=== PATIENT | female | born 1975 | race Asian ===

== ENCOUNTER 2017-01-30 08:24 | Emergency (ER) | payer OTHER ==
[~2017-01-30] VITALS: Ht 177.8 cm; Wt 121.6 kg
[2017-01-30 10:29] VITALS: BP 174/109
== END 2017-01-30 10:29 | disposition home or self-care (01) ==
LOC: ED 08:24
DX: S50.02XA Contusion of left elbow, initial encounter (principal); I10 Essential (primary) hypertension; Z79.84 Long term (current) use of oral hypoglycemic drugs; W01.0XXA Fall on same level from slipping, tripping and stumbling without subsequent striking against object, initial encounter; Y93.89 Activity, other specified; Y99.8 Other external cause status; Y92.89 Other specified places as the place of occurrence of the external cause
CPT/HCPCS: Q0092

== ENCOUNTER 2020-07-21 01:14 | Emergency (ER) | payer OTHER, SELFPAY ==
[~2020-07-21] VITALS: Ht 177.8 cm; Wt 102.1 kg
[2020-07-21 01:23] VITALS: Ht 177.8 cm; Wt 102.1 kg
[2020-07-21 02:14] LABS: microscopic required? YES; urine erythrocyte 3+ (NEGATIVE)
[2020-07-21 02:27] LABS: BASOPHIL % 0.5 % (0.2-1.3); PLATELET COUNT 262 x10^3mcL (179-408)
[2020-07-21 02:31] LABS: ALBUMIN 3.4 g/dL (3.4-5.0); BILIRUBIN TOTAL 0.4 mg/dL (0.20-1.00); CALCIUM 9.5 mg/dL (8.5-10.1); CARBON DIOXIDE 24.8 mmol/L (21-32); CREATININE SERUM 1.3 mg/dL (0.6-1.0); POTASSIUM SERUM 4.2 mmol/L (3.5-5.1); TOTAL PROTEIN, SERUM 7.8 g/dL (6.4-8.2)
[2020-07-21 03:04] LABS: RED CELL DISTRIBUTION WIDTH 16.7 % (12.3-17.7)
[2020-07-21] MEDS ORDERED: MACROBID100 MG PO (03:16)
[2020-07-21] MEDS ORDERED: PEPCID AC20 M2 PO (03:16)
[2020-07-21 04:13] VITALS: BP 163/83
== END 2020-07-21 04:13 | disposition home or self-care (01) ==
LOC: ED 01:14
PROVIDERS: Emergency Medicine
DX: N39.0 Urinary tract infection, site not specified (principal); E11.65 Type 2 diabetes mellitus with hyperglycemia; K76.0 Fatty (change of) liver, not elsewhere classified; I10 Essential (primary) hypertension
CPT/HCPCS: 82962; J7030